=== PATIENT | male | born 1995 | race Hispanic/Latino ===

== ENCOUNTER 2024-09-05 21:12 | Inpatient (IN) | payer SELFPAY ==
[2024-09-05 22:33] LABS: ALT (SGPT) 25 U/L (8-55); AST (SGOT) 23 U/L (5-34); Alkaline Phosphatase 101 U/L (40-110); Anion Gap 15 mmol/L (10-20); BUN (Urea Nitrogen) 22 mg/dL (8.9-20.6); Bilirubin, Total 0.3 mg/dL (0.2-1.2); Calc. Creatinine Clearance 0 mL/min (70-130); Calcium 9.5 mg/dL (7.8-10.44); Carbon Dioxide 22 mmol/L (22-29); Chloride 106 mmol/L (98-107); Estimated GFR 96; Globulin 2.9 g/dL (2.4-3.5); Glucose 103 mg/dL (70-105); Potassium 3.9 mmol/L (3.5-5.1); Protein, Total 6.9 g/dL (6.0-8.3); Sodium 139 mmol/L (136-145)
[2024-09-05 22:34] LABS: Acetaminophen Less than 10 mcg/mL (Less than 10); Alcohol Less than 10.0 mg/dL (Less than 10); Salicylate Less than 8.0 mg/dL (Less than 8.0)
[2024-09-05 22:36] LABS: #Basophils 0.04 10x3/uL (0.0-0.2); %Basophils 0.3 % (0.0-1.0); %Eosinophils 0.4 % (0.0-10.0); %Lymphocytes 5.6 % (21.0-51.0); %Monocytes 4.3 % (0.0-10.0); %Neutrophils 88.9 % (42.0-75.0); Hematocrit 45.5 % (42.0-52.0); Hemoglobin 15.1 g/dL (14.0-18.0); Mean Corpuscular HGB CONC 33.2 g/dL (32.0-36.0); Mean Corpuscular Hemoglobin 29.4 pg (27.0-31.0); Mean Corpuscular Volume 88.5 fL (78.0-98.0); Mean Platelet Volume 9.2 fL (7.4-10.4); Platelet Count 236 10x3/uL (130-400); RBC Distribution Width 12.6 % (11.5-14.5); Red Blood Cell (RBC) Count 5.14 mill/uL (4.70-6.10)
[2024-09-05] MEDS ORDERED: levETIRAcetam 500 MG (5 mL) VIAL ONE (22:43)
[2024-09-05] MEDS ORDERED: Lorazepam 2 MG/ML VIAL SLOW IVP PRN (23:03)
[2024-09-05] MEDS ORDERED: Ondansetron ODT 4 MG TAB PO PRN (23:07)
[2024-09-05] MEDS ORDERED: Acetaminophen 650 MG Suppository PR PRN (23:07)
[2024-09-05] MEDS ORDERED: Ondansetron PF 4 MG/2 ML Vial IVP PRN (23:07)
[2024-09-05 23:13] LABS: Amphetamine Not Detected (NotDetected); Barbiturates Screen Not Detected (NotDetected); Benzodiazepine Screen Not Detected (NotDetected); Cocaine Metabolite Screen Not Detected (NotDetected); Methadone Not Detected (NotDetected); Methamphetamine Not Detected (NotDetected); Opiate Screen Not Detected (NotDetected); Oxycodone Screen Not Detected (NotDetected); Phencyclidine (PCP) Not Detected (NotDetected); THC/Cannabinoid Screen Not Detected (NotDetected); Tricyclic Screen Not Detected (NotDetected)
[2024-09-06] MEDS: Acetaminophen 325 MG TAB PO SCH (01:31)
[2024-09-06 04:31] LABS: #Basophils 0.04 10x3/uL (0.0-0.2); %Basophils 0.3 % (0.0-1.0); %Eosinophils 0.8 % (0.0-10.0); %Lymphocytes 13.8 % (21.0-51.0); %Monocytes 6.9 % (0.0-10.0); %Neutrophils 77.8 % (42.0-75.0); Hematocrit 42.7 % (42.0-52.0); Hemoglobin 14.1 g/dL (14.0-18.0); Mean Corpuscular Hemoglobin 29.5 pg (27.0-31.0); Mean Corpuscular Volume 89.3 fL (78.0-98.0); Mean Platelet Volume 9.2 fL (7.4-10.4); Platelet Count 235 10x3/uL (130-400); RBC Distribution Width 12.6 % (11.5-14.5); Red Blood Cell (RBC) Count 4.78 mill/uL (4.70-6.10)
[2024-09-06 04:49] LABS: ALT (SGPT) 24 U/L (8-55); AST (SGOT) 22 U/L (5-34); Albumin 3.6 g/dL (3.5-5.0); Alkaline Phosphatase 91 U/L (40-110); Anion Gap 10 mmol/L (10-20); BUN (Urea Nitrogen) 22 mg/dL (8.9-20.6); Bilirubin, Total 0.5 mg/dL (0.2-1.2); Calc. Creatinine Clearance 93 mL/min (70-130); Carbon Dioxide 25 mmol/L (22-29); Chloride 107 mmol/L (98-107); Estimated GFR 115; Globulin 2.9 g/dL (2.4-3.5); Glucose 86 mg/dL (70-105); Potassium 3.5 mmol/L (3.5-5.1); Protein, Total 6.5 g/dL (6.0-8.3); Sodium 138 mmol/L (136-145)
[2024-09-06 06:23] VITALS: BMI 22.0
[2024-09-06 09:11] LABS: HIV (1/2) Antibody/Antigen NONREACTIVE (NonReactive); HIV 1/2 INDEX 0.08 S/CO (<1.00)
[2024-09-06] MEDS ORDERED: Magnevist 469MG/ML 20 ML VIAL ONE (10:04)
[2024-09-06] MEDS ORDERED: Iopamidol-370 76% 500 ML MDV (1 ML CHARGE) ONE (10:10)
[2024-09-06] MEDS: Famotidine 20 MG TAB PO SCH (11:09)
[2024-09-06] MEDS: levETIRAcetam 500 MG TAB PO SCH (11:09)
[2024-09-06] MEDS: Famotidine/PF 20 mg/2ml Vial SLOW IVP SCH (11:12)
[2024-09-07 08:39] LABS: Toxoplasma IgG AB 58.9 IU/mL (0.0-7.1)
[2024-09-08 04:08] LABS: #Basophils 0.03 10x3/uL (0.0-0.2); %Basophils 0.4 % (0.0-1.0); %Eosinophils 3.6 % (0.0-10.0); %Lymphocytes 25.2 % (21.0-51.0); %Monocytes 6.9 % (0.0-10.0); %Neutrophils 63.8 % (42.0-75.0); Hematocrit 44.9 % (42.0-52.0); Hemoglobin 14.9 g/dL (14.0-18.0); Mean Corpuscular HGB CONC 33.2 g/dL (32.0-36.0); Mean Corpuscular Hemoglobin 29.4 pg (27.0-31.0); Mean Corpuscular Volume 88.7 fL (78.0-98.0); Mean Platelet Volume 8.9 fL (7.4-10.4); Platelet Count 209 10x3/uL (130-400); RBC Distribution Width 12.5 % (11.5-14.5); Red Blood Cell (RBC) Count 5.06 mill/uL (4.70-6.10)
[2024-09-08 04:13] LABS: Toxoplasma IgM AB Less than 3.0 AU/mL (0.0-7.9)
[2024-09-08 04:27] LABS: Anion Gap 12 mmol/L (10-20); BUN (Urea Nitrogen) 15 mg/dL (8.9-20.6); Calc. Creatinine Clearance 85 mL/min (70-130); Calcium 9.3 mg/dL (7.8-10.44); Carbon Dioxide 26 mmol/L (22-29); Chloride 107 mmol/L (98-107); Estimated GFR 100; Glucose 94 mg/dL (70-105); Potassium 3.7 mmol/L (3.5-5.1); Sodium 141 mmol/L (136-145)
[2024-09-08] MEDS ORDERED: CEFAZOLIN 2 GM in Sodium Chloride 0.9% 100 ML IVPB SCH (07:30)
[2024-09-08] MEDS ORDERED: EPINEPHrine 1 MG/ML VIAL ONE (17:55)
[2024-09-08] MEDS ORDERED: Lidocaine 2% PF 5 ML VIAL ONE (17:55)
[2024-09-08] MEDS ORDERED: Bupivacaine 0.25% HCL 30 ML VIAL ONE (17:55)
[2024-09-08] MEDS ORDERED: fentaNYL PF 100 MCG/2 ML SYRINGE ONE (18:30)
[2024-09-08] MEDS ORDERED: Dexamethasone 4 mg/ml Vial ONE (18:30)
[2024-09-08] MEDS ORDERED: Lidocaine 1% PF 5 ML VIAL ONE (18:30)
[2024-09-08] MEDS ORDERED: Ondansetron PF 4 MG/2 ML Vial ONE (18:30)
[2024-09-08] MEDS ORDERED: PROPOFOL 20 ML ONE (18:30)
[2024-09-08] MEDS ORDERED: CEFAZOLIN 2 GM VIAL ONE (18:41)
[2024-09-08] MEDS ORDERED: traMADol HCl 50 MG TAB PO PRN (19:25)
[2024-09-08] MEDS ORDERED: Acetaminophen 500 MG TAB PO PRN (19:28)
[2024-09-08] MEDS ORDERED: Ketorolac Tromethamine 30 MG/ML VIAL IVP PRN (19:32)
[2024-09-08] MEDS ORDERED: Ondansetron HCl/PF 4 MG/2 ML Vial IVP PRN (19:32)
[2024-09-08] MEDS ORDERED: Promethazine HCl 25 MG/ML VIAL IM PRN (19:32)
[2024-09-09] MEDS: FLU (Fluarix Triv) TS24-25(6MOS UP)/PF 45 MCG/0.5 ML Syringe IM ONE (08:07)
[2024-09-09 12:38] VITALS: BP 124/61; TEMP 98.1
[2024-09-10 00:13] LABS: QuantiFERON-TB Gold Plus Negative (Negative)
[2024-09-10 16:36] LABS: Coccidioides ABS (DID) Negative (Neg:<1:2); Histoplasma Mycelial AB (CF) Negative (Neg:<1:2); Histoplasma Yeast AB (CF) Negative (Neg:<1:2)
== END 2024-09-09 16:20 | disposition home or self-care (01) | DRG 100 ==
LOC: ERS 21:12 → 2SE 23:35
PROVIDERS: ADMIT Student in an Organized Health Care Education/Training Program; ATTEND Family Medicine
PROC: 4A10X4Z Monitoring of Central Nervous Electrical Activity, External Approach (ICD-10-PCS; principal; 2024-09-06)
PROC: 0JBF0ZX Excision of Left Upper Arm Subcutaneous Tissue and Fascia, Open Approach, Diagnostic (ICD-10-PCS; 2024-09-08)
DX: G40.409 Other generalized epilepsy and epileptic syndromes, not intractable, without status epilepticus (principal); G93.6 Cerebral edema; R04.2 Hemoptysis; C71.9 Malignant neoplasm of brain, unspecified; R91.8 Other nonspecific abnormal finding of lung field
CPT/HCPCS: 36415; 36416; 70450; 70486; 70553; 71260; 72125; 74177; 76376; 76999; 80048; 80053; 80306; 80307; 83735; 84146; 85025; 86301; 86480; 86635; 86698; 86777; 86778; 87385; 87389; 88307; 93005; 95700; 95711; 95957; 96374; A6258; J0171; J0665; J1100; J1953; J2405; J2704; Q9967